=== PATIENT | female | born 1985 | race Caucasian/White ===

== ENCOUNTER 2017-12-06 14:07 | Emergency (ER) | payer BC ==
[2017-12-06 14:11] VITALS: BP 145/86
[2017-12-06] MEDS ORDERED: FUROSEMIDE 80 MG TABLET PO ONE (14:59)
--- NOTE | 2017-12-06 15:05 | ER Document Report ---
ED General - General Chief Complaint: Ankle Swelling Stated Complaint: ANKLE/BACK PAIN Time Seen by Provider: 12/06/17 14:51 Notes: 32-year-old female here with multiple complaints: BILATERAL LEG SWELLING, CHRONIC Bilateral leg swelling ongoing for the past 12 months but progressively worsening, especially in the last 2 months. The swelling is only in the ankles. It is worse when she has been up for a while and improves, and in fact , resolves completely when she elevates her legs. She denies any shortness of breath chest pain numbness tingling weakness. She has been drinking plenty of fluids. She has been urinating per usual. Denies any prior history of kidney failure congestive heart failure. She has a family history of varicose veins. LOWER BACK PAIN, CHRONIC Chronic low back pain, midline, ongoing for the past 10 years ever since giving to her child. She states that she does not have the pain unless you push on the area of concern. The pain is worse with pressing on the area otherwise it is not present. It is not worse with movement or lifting. Denies any heavy lifting or traumatic impact. Denies retention incontinence numbness tingling weakness fevers chills IV drug use. Has not tried anything for the symptoms. Has not seen her doctor about this. - Related Data Allergies/Adverse Reactions: No Known Allergies Allergy (Verified 12/06/17 14:08) Past Medical History - Social History Smoking Status: Unknown if Ever Smoked Family History: Reviewed & Not Pertinent Review of Systems - Review of Systems Notes: See history of present illness for pertinent positive review of systems; otherwise all review of systems have been reviewed and are negative Physical Exam - Vital signs Vitals: Temp Pulse Resp BP Pulse Ox 99.2 F 77 20 145/86 H 99 12/06/17 14:10 12/06/17 14:10 12/06/17 14:10 12/06/17 14:10 12/06/17 14:10 - Notes Notes: PHYSICAL EXAMINATION: GENERAL: Well-appearing and in no acute distress. HEAD: Atraumatic, normocephalic. EYES: Pupils equal round and reactive to light, extraocular movements intact, sclera anicteric, conjunctiva are normal. ENT: nares patent, oropharynx clear without exudates. Moist mucous membranes. NECK: Normal range of motion, supple without lymphadenopathy LUNGS: CTAB and equal. No wheezes rales or rhonchi. HEART: Regular rate and rhythm without murmurs ABDOMEN: Soft, no tenderness. No facial grimacing/wincing upon palpation. No guarding, no rebound. EXTREMITIES: Normal range of motion. No cyanosis. Bilateral lower extremity less than 1+ pitting edema to the ankles and feet. There are varicose veins, moderate, located on both lower extremities. Mild TTP of midline lumbar spine at L4-L5 without step-off NEUROLOGICAL: Cranial nerves grossly intact. Normal sensory/motor exams. PSYCH: Normal mood, normal affect. SKIN: Warm, Dry, normal turgor, no rashes or lesions noted Course - Re-evaluation Re-evalutation: 12/06/17 15:04 MEDICAL DECISION MAKING: Concern for acute on chronic venous insufficiency and musculoskeletal back pain There is no emergency medical condition identified today based on history/exam and clinical judgment She does not have shortness of breath or rales so little suspicion for CHF Will give her a one-time dose of Lasix here to see if it helps her with her leg swelling She is also morbidly obese and this is likely contributing to her leg swelling Discussed with her if the Lasix helps, speak with her PCP about a prescription for Lasix Also discussed with her to make sure that she establishes care with a PCP if she does not have one Patient understands and agrees to the plan of care - Vital Signs Vital signs: Temp Pulse Resp BP Pulse Ox 99.2 F 77 20 145/86 H 99 12/06/17 14:10 12/06/17 14:10 12/06/17 14:10 12/06/17 14:10 12/06/17 14:10 Discharge - Discharge Clinical Impression: Varicose veins of leg with swelling Qualifiers: Laterality: bilateral Qualified Code(s): I83.893 - Varicose veins of bilateral lower extremities with other complications Condition: Good Disposition: HOME, SELF-CARE Additional Instructions: You were seen in the emergency department at [facility]. You received a one-time dose of a diuretic called Lasix here. Please let your doctor know if this has help with your leg swelling. Please followup with your primary physician in the next few days for further management/evaluation. Please return to the emergency department for worsening of symptoms or any symptom that you deem to be concerning or life-threatening. Thank you for allowing us to be part of your care.
== END 2017-12-06 15:29 | disposition home or self-care (01) ==
LOC: ER 14:07
DX: I83.893 Varicose veins of bilateral lower extremities with other complications (principal); M54.5 Low back pain; G89.29 Other chronic pain; E66.01 Morbid (severe) obesity due to excess calories; Z68.42 Body mass index [BMI] 45.0-49.9, adult
CPT/HCPCS: 99283; J3490

== ENCOUNTER → 2018-03-05 | Outpatient (CLI) | payer MEDICAID ==
--- NOTE | 2018-03-05 19:53 | XCELERA REPORT ---
[address] [address] Lower Extremity Venous Evaluation Procedure: Color flow and duplex imaging bilaterally of the veins of the lower extremities as well as the Common Femoral veins. Right Sided Venous Evaluation Popliteal and Posterior Tibial veins not well seen. Otherwise normal vessel filling wall to wall, compression and augmentation as well as Colour flow down to the infrageniculate veins. Left Sided Venous Evaluation Normal vessel filling wall to wall, compression and augmentation as well as Colour flow down to the infrageniculate veins. Interpretation Summary No duplex evidence of DVT or obstruction in the bilateral lower extremities. Technical difficulty in imaging some veins on the right. Name: MERARI ROSS Age: 32 yrs Gender: Female : 1985 Patient Status: Outpatient Patient Location: Study Date: 03/05/2018 01:54 PM Reason For Study: EDEMA Ordering Physician: RYDER PIMENTEL PA-C Performed By: Leah Zuñiga : RYDER PIMENTEL PA-C > Brooks Gunderson
== END ==
LOC: SP 13:03
PROVIDERS: ATTEND Physician Assistant
DX: R60.0 Localized edema (principal)
CPT/HCPCS: 93970